=== PATIENT | female | born 1965 | race Caucasian/White ===

== ENCOUNTER 2020-03-13 12:01 | Observation (INO) ==
[2020-03-13] MEDS ORDERED: HYDROmorphone 2 MG/1 ML VIAL IV STA (14:02)
[2020-03-13] MEDS ORDERED: ONDANSETRON 4 MG/2 ML VIAL IV ONE (14:02)
[2020-03-13] MEDS ORDERED: SODIUM CHLORIDE 0.9% 1,000 ML IV STA (15:02)
[2020-03-13 15:19] LABS: Basophils % 0.3 % (0.0-0.8); Eosinophils % 0.1 % (0.00-10.9); Hematocrit 45.8 VOL% (35.7-47.0); Hemoglobin 15.6 GM/DL (12.0-16.0); Immature Granulocytes % 0.5 %; Immature Granulocytes Absolute 0.07 #; Lymphocytes # 1.5 10*3/uL (1.4-4.0); Lymphocytes % 10.3 % (21.3-54.2); Mean Corpuscular HGB Conc 34.1 GM/DL (32-36); Mean Corpuscular Volume 86.7 FL (87-102); Monocytes % 3.4 % (1.7-12.7); Neutrophils % 85.4 % (38.7-73.9); Platelet Count 374 T/CUMM (130-400); Red Blood Count 5.28 MC/CUMM (3.8-5.5); Red Cell Distribution Width 13.2 % (9.3-17.3)
[2020-03-13 15:25] LABS: Albumin 3.8 G/DL (3.4-5.0); Bilirubin,Total 0.4 MG/DL (0.2-1.0); Calcium 10.2 MG/DL (8.5-10.1); Total Protein 8.1 G/DL (6.4-8.3)
[2020-03-13] MEDS ORDERED: PIPERACILLIN/TAZOBACTAM 3,375 MG in SODIUM CHLORIDE 0.9% 100 ML IV STA ×2 (15:39→15:55)
[2020-03-13] MEDS ORDERED: HYDROmorphone 2 MG/1 ML VIAL IV PRN (16:17)
[2020-03-13] MEDS ORDERED: ONDANSETRON 4 MG/2 ML VIAL IV PRN (16:17)
[2020-03-13] MEDS ORDERED: BISACODYL 5 MG TABLET PO PRN (16:17)
[2020-03-13] MEDS ORDERED: ACETAMINOPHEN 325 MG TABLET PO PRN (16:17)
[2020-03-13] MEDS ORDERED: ALBUTEROL/IPRATROPIUM 3 ML NEB RESP TX PRN (16:17)
[2020-03-13] MEDS ORDERED: KETOROLAC 15 MG/1 ML VIAL IV PRN (16:17)
[2020-03-13] MEDS ORDERED: DEXTROSE 50% 25 GM/50 ML VIAL IV PRN (16:21)
[2020-03-13] MEDS ORDERED: GLUCAGON 1 MG VIAL IM PRN (16:21)
[2020-03-13 18:34] LABS: Bacteria,Urine Occasional /HPF (Few); Bilirubin,Urine Negative (Negative); Blood, Urine Negative (Negative); Glucose,Urine (UA) >=500 mg/dL (Negative); Ketones,Urine 5 mg/dL (Negative); Mucus,Urine Occasional /LPF (Occasional); Nitrite,Urine Negative (Negative); Protein,Urine Negative; RBC,Urine 2 /HPF (0-4); Squamous Epithelial Cell,Urine Occasional /HPF (0-10); Urine Appearance CLEAR (Clear); Urine Color Straw (Yellow); Urine Specific Gravity 1.027 (1.001-1.035); Urine Urobilinogen < 2.0 EU/DL (0.2-1.0); WBC,Urine 1 /HPF (0-6)
[2020-03-13] MEDS: LACTATED RINGERS 1,000 ML IV SCH (20:26)
[2020-03-14] MEDS: INSULIN LISPRO 100 UNIT/ML SUBCUT SCH ×4 (00:53→17:06)
[2020-03-14] MEDS: PIPERACILLIN/TAZOBACTAM 3,375 MG in SODIUM CHLORIDE 0.9% 100 ML IV SCH ×3 (01:04→17:40)
[2020-03-14 06:05] LABS: Basophils % 0.3 % (0.0-0.8); Eosinophils % 0.1 % (0.00-10.9); Hematocrit 42.8 VOL% (35.7-47.0); Hemoglobin 14.3 GM/DL (12.0-16.0); Immature Granulocytes % 0.4 %; Immature Granulocytes Absolute 0.06 #; Lymphocytes # 2.4 10*3/uL (1.4-4.0); Lymphocytes % 17.4 % (21.3-54.2); Mean Corpuscular HGB Conc 33.4 GM/DL (32-36); Mean Corpuscular Volume 88.4 FL (87-102); Mean Platelet Volume 9.2 FL (9.6-12.0); Monocytes % 6.9 % (1.7-12.7); Neutrophils % 74.9 % (38.7-73.9); Platelet Count 361 T/CUMM (130-400); Red Blood Count 4.84 MC/CUMM (3.8-5.5); Red Cell Distribution Width 13.1 % (9.3-17.3); White Blood Count 13.7 T/CUMM (4-12)
[2020-03-14] MEDS ORDERED: LIDOCAINE 1%/EPI INJ 20 ML VIAL ONE (06:05)
[2020-03-14] MEDS ORDERED: TISSUE ADHESIVE 1 EACH APPLICATOR TOP ONE (06:05)
[2020-03-14] MEDS ORDERED: BUPIVACAINE MPF 0.25% 30 ML VIAL ONE (06:05)
[2020-03-14] MEDS ORDERED: MEPERIDINE 25 MG/1 ML VIAL IV PRN (06:32)
[2020-03-14] MEDS ORDERED: ONDANSETRON 4 MG/2 ML VIAL IV PRN (06:32)
[2020-03-14] MEDS ORDERED: diphenhydrAMINE 50 MG/1 ML VIAL IV PRN (06:32)
[2020-03-14] MEDS ORDERED: PROMETHAZINE INJ 25 MG in SODIUM CHLORIDE 0.9% 50 ML IV PRN (06:32)
[2020-03-14 06:37] LABS: Albumin 3.3 G/DL (3.4-5.0); Bilirubin,Total 0.9 MG/DL (0.2-1.0); Calcium 9.4 MG/DL (8.5-10.1); Osmolality,Calculated 274.7 MOS/KG (273-304); Total Protein 7.1 G/DL (6.4-8.3)
[2020-03-14] MEDS ORDERED: DEXTROSE 50% 25 GM/50 ML VIAL IV PRN (08:59)
[2020-03-14] MEDS ORDERED: GLUCAGON 1 MG VIAL IM PRN (08:59)
[2020-03-14] MEDS ORDERED: propofoL 200 MG/20 ML VIAL IV ONE (09:07)
[2020-03-14] MEDS ORDERED: SEVOFLURANE 1 UNIT/15 MINUTE INH ONE (09:07)
[2020-03-14] MEDS ORDERED: LIDOCAINE 2% 5 ML VIAL ONE (09:07)
[2020-03-14] MEDS ORDERED: GLYCOPYRROLATE 0.4 MG/2 ML VIAL ONE (09:08)
[2020-03-14] MEDS ORDERED: KETOROLAC 30 MG/1 ML VIAL ONE (09:08)
[2020-03-14] MEDS ORDERED: MIDAZOLAM 2 MG/2 ML VIAL ONE (09:08)
[2020-03-14] MEDS ORDERED: PHENYLEPHRINE 1 MG/10 ML SYRINGE IV ONE (09:08)
[2020-03-14] MEDS ORDERED: ROCURONIUM 100 MG/10 ML VIAL IV ONE (09:08)
[2020-03-14] MEDS ORDERED: LACTATED RINGERS 1,000 ML IV ONE (09:08)
[2020-03-14] MEDS ORDERED: ONDANSETRON 4 MG/2 ML VIAL ONE (09:08)
[2020-03-14] MEDS ORDERED: NEOSTIGMINE 10 MG/10 ML VIAL ONE (09:08)
[2020-03-14] MEDS ORDERED: fentaNYL 100 MCG/2 ML VIAL ONE (09:08)
[2020-03-14] MEDS: PANTOPRAZOLE 40 MG TABLET PO SCH (10:27)
[2020-03-14] MEDS: GLIMEPIRIDE 4 MG TABLET PO SCH ×2 (12:19→21:39)
[2020-03-15] MEDS: PIPERACILLIN/TAZOBACTAM 3,375 MG in SODIUM CHLORIDE 0.9% 100 ML IV SCH ×2 (00:47→09:45)
[2020-03-15] MEDS: LACTATED RINGERS 1,000 ML IV SCH (07:05)
[2020-03-15] MEDS: INSULIN LISPRO 100 UNIT/ML SUBCUT SCH ×2 (08:16→14:12)
[2020-03-15] MEDS: PANTOPRAZOLE 40 MG TABLET PO SCH (09:46)
[2020-03-15] MEDS: GLIMEPIRIDE 4 MG TABLET PO SCH (09:46)
[2020-03-15 10:04] LABS: Basophils % 0.2 % (0.0-0.8); Eosinophils # 0.1 10*3/uL (0.0-0.87); Eosinophils % 0.6 % (0.00-10.9); Hematocrit 40.1 VOL% (35.7-47.0); Hemoglobin 13.4 GM/DL (12.0-16.0); Immature Granulocytes % 0.4 %; Immature Granulocytes Absolute 0.04 #; Lymphocytes # 0.7 10*3/uL (1.4-4.0); Lymphocytes % 6.4 % (21.3-54.2); Mean Corpuscular HGB Conc 33.4 GM/DL (32-36); Mean Corpuscular Volume 89.3 FL (87-102); Mean Platelet Volume 8.7 FL (9.6-12.0); Monocytes % 6.6 % (1.7-12.7); Neutrophils % 85.8 % (38.7-73.9); Platelet Count 273 T/CUMM (130-400); Red Blood Count 4.49 MC/CUMM (3.8-5.5); Red Cell Distribution Width 13.2 % (9.3-17.3); White Blood Count 10.8 T/CUMM (4-12)
[2020-03-15 10:20] LABS: Calcium 8.8 MG/DL (8.5-10.1); Osmolality,Calculated 276.7 MOS/KG (273-304)
[2020-03-15 10:24] LABS: Troponin I < 0.015 NG/ML (0.00-0.045)
[2020-03-15 11:40] VITALS: BP 127/52
[2020-03-16] MEDS ORDERED: METOPROLOL SUCCINATE XL 25 MG TABLET PO SCH (09:00)
[2020-03-16] MEDS ORDERED: LOSARTAN 50 MG TABLET PO SCH (09:00)
== END 2020-03-15 16:01 | disposition home or self-care (01) ==
LOC: N.EDINP 12:01 → N.ED 12:01 → N.EDINP 18:08 → N.3E 18:11
PROVIDERS: ADMIT Surgery; ATTEND Surgery
PROC: LAPCHOL (2020-03-14 07:19)